=== PATIENT | male | born 1955 | race Caucasian/White ===

== ENCOUNTER 2022-06-12 10:15 | Day surgery (SDC) | payer MEDICARE, SELFPAY ==
[2022-06-12 10:25] VITALS: BP 151/72; PULSE 66; RESP 18; TEMP 36.2; O2SAT 99
[2022-06-12] MEDS: Tropicam./Phenyleph. (1/2.5%) 5 ML BTL OS ×3 (10:56→11:13)
--- NOTE | 2022-06-12 10:58 | W.ANESPRE ---
General Info Date of Service Date Performed: 06/12/22 Height: 5 ft 11 in Weight: 77.111 kg Body Mass Index (BMI): 23.7 Surgical Procedure: Operation Date: 06/12/22 12:10 Proposed Procedure Side Surgeon p Cataract Extraction with IOL Implant Left Joshua Sun MD Meds Allergies and Home Medications Allergies Allergy/AdvReac Type Severity Reaction Status Date / Time No Known Allergies Allergy Unverified 06/12/22 10:48 Home Medication Medication Instructions Recorded amlodipine 10 mg tablet 10 mg PO DAILY 06/09/22 atorvastatin 80 mg tablet 80 mg PO DAILY 06/09/22 clopidogrel 75 mg tablet 75 mg PO DAILY 06/09/22 finasteride 5 mg tablet 5 mg PO DAILY 06/09/22 lisinopril 40 mg tablet 40 mg PO DAILY 06/09/22 metoprolol succinate 25 mg 25 mg PO DAILY 06/09/22 tablet,extended release 24 hr tamsulosin 0.4 mg capsule 0.4 mg PO DAILY 06/09/22 Current Visit Medications: Current Medications Generic Name Dose Route Start Last Admin Trade Name Freq PRN Reason Stop Dose Admin Acetaminophen 1,000 mg 06/12/22 06:00 Acetaminophen 500 Mg Tab PO Q4H PRN PRN Miscellaneous Medication 0 ml 06/12/22 06:00 06/12/22 10:56 Tropicam./Phenyleph. 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 denies HTN (hypertension) Hx of fracture of rib Mixed hyperlipidemia PVD (peripheral vascular disease) Surgical History Surgical History Hx of cqvcj-letxt-neivxqk bypass 04/2021 Hx of cardiac catheterization x2 stents 2018 Hx of colonoscopy Hx of esophagogastroduodenoscopy Tobacco Smoking/Tobacco Use Status: Current every day Tobacco Type: cigarettes Alcohol Alcohol Intake: never Substance Use Substance use: Never Substance use type: does not use Vital Signs and Lab Results Vital Signs Most Recent Vital Signs in EMR: Most Recent Vital Signs Temp Pulse Resp BP Pulse Ox 36.2 C L 66 18 151/72 H 99 06/12/22 10:25 06/12/22 10:25 06/12/22 10:25 06/12/22 10:25 06/12/22 10:25 Lab Results Blood Type / Crossmatch: No Data to Display Complete Blood Count: No Data to Display Complete Metabolic Panel: No Data to Display Liver Function Panel: No Data to Display Coagulation Panel: No Data to Display Cardiac Panel: No Data to Display Arterial Blood Gas: No Data to Display Venous Blood Gas: No Data to Display Pancreas Panel: No Data to Display Thyroid Panel: No Data to Display Infectious Disease: No Data to Display Blood Cultures: No Data to Display Toxicology Panel: No Data to Display Anesthesia Assessment and Plan Anesthesia History Personal History: No History of Anesthesia Complications Family History: No Family History of Anesthesia Complications Exercise Tolerance Exercise Tolerance: Metabolic Equivalents>4 Pertinent Negatives Pertinent Negatives: No Symptoms of GERD and No History of CVA/TIA Cardiac & Pulmonary Exam Cardiac Exam: Normal S1/S2 Heart Sounds Pulmonary Exam: Clear Bilateral Breath Sounds Implantable Cardiac Device Does patient have a Pacemaker or an ICD?: No Airway Exam Known Difficult Airway: No Mallampati Class: 2 Mouth Opening: Normal (> 3cm) Thyromental Distance: Greater than 3 cm Neck Range of Motion: Limited ROM Neck Circumference: Normal Teeth Condition: Normal Dentition ASA Classification ASA Score: ASA 3 Emergency Case?: No NPO Status NPO Status: NPO Clears >2 hours, Solids >8 hours Anesthesia Plan Resuscitation Status: Full Code Anesthesia Technique: MAC Anesthesia Airway Planned: Natural Airway Monitors Used: Standard Monitors Preoperative Comments:: Hx cardiac stent placement at [facility] COPD no inhailer use non oxygen dependent
[2022-06-12 11:08] VITALS: BMI 23.7
[2022-06-12] MEDS: Tetracaine 0.5% 4 ML BTL OS (11:53)
[2022-06-12] MEDS: Lidocaine 2% Jelly 6 ML SYR (11:54)
[2022-06-12] MEDS: Povidone-Iodine Ophth 30 ML BTL (11:56)
[2022-06-12] MEDS: Balanced Salt Soln.-PLUS 500 ML BAG (11:59)
[2022-06-12] MEDS: Duovisc Viscoelastic System EACH 1 EACH (12:00)
[2022-06-12] MEDS: Lidocaine 1% Pres-Free 5 ML VIAL (12:00)
[2022-06-12] MEDS: Phenylephrine/Lidocaine (15/10) MG/ML 1 ML VIAL (12:01)
[2022-06-12 12:23] VITALS: BP 158/83; PULSE 68; RESP 16; TEMP 36.6; O2SAT 99
--- NOTE | 2022-06-12 12:23 | ROE_ITS ---
Date of service: 06/12/22 Time of Service: 12:23 Operative Note Operative Note DATE OF PROCEDURE: 06/12/22 PRE-OP DIAGNOSIS: Nuclear cataract, left eye POST-OP DIAGNOSIS: same PROCEDURE: Cataract extraction using phacoemulsification with intraocular lens implant, left eye SURGEON: Joshua Sun ANESTHESIA TYPE: Local By Surgeon and MAC Refer to Anesthesia Record PATHOLOGY: none sent COMPLICATIONS: None Patient was transported to: same day Patient's condition: stable Implants: Vincent and Vincent Tecnis Eyhance [id number] Indications: Progressive decreased vision due to cataract, left eye Procedure Description: CATARACT SURGERY OPERATIVE REPORT PREOPERATIVE DIAGNOSIS: 1. Nuclear cataract, left eye POSTOPERATIVE DIAGNOSIS: Same OPERATION: 1. Cataract extraction using phacoemulsification with posterior chamber intraocular lens implant, left eye. IOL: IOL [employer]hib[employer] Sales/Model: Vincent & Vincent Tecnis Eyhance DIB00 IOL Power: + 10.0 diopters IOL Serial Number: [id number] Optic Diameter: 6.0 mm Haptic/Overall Diameter: 13.0 mm PHACO INFO: [employer] Vision System with OZil and Active Fluidics Cumulative Dispersed Energy (CDE): 10.13 seconds SURGEON: Joshua Sun MD, JUDY ANESTHESIA: Monitored A [facility] (MAC), with local sub-tenon's anesthetic infiltration COMPLICATIONS: None SPECIMENS: None INDICATIONS FOR PROCEDURE: The patient is a 67-year-old male with history of myopia who has developed a symptomatic nuclear cataract in the left eye. The option of cataract surgery was offered to the patient and he felt he was symptomatic enough that he wished to proceed. PROCEDURE: The correct surgical eye was identified and marked as the left eye and the pupil was dilated in the preoperative area using mydriatics and cycloplegics. The dilated pupil size was 7.0 mm. The patient elected to proceed without oral sedation. The patient was brought to the operating room where cardiopulmonary monitoring was instituted and surgical time-out was performed, confirming the correct operative eye and IOL power. Topical anesthesia was administered and ophthalmic povidone-iodine 5% was instilled into the conjunctival fornices. Lidocaine gel was applied to the cornea and the natacha-ocular area was prepped with Betadine 10% solution and draped in the usual sterile fashion for intraocular surgery, including an aperture drape. A Tegaderm transparent film dressing was cut in half and used to cover the lashes and lid margins. Care was taken to sequester the lashes and lid margins under the Tegaderm dressing. A lid speculum was placed between the lids of the operative eye and the Cruz [employer] operating microscope was maneuvered into position. Evangelista scissors were then used to make a conjunctival buttonhole approximately 6mm posterior to the limbus in the inferonasal quadrant. Blunt dissection was carried out to expose bare sclera, and a blunt-tipped sub-tenon?s anesthesia cannula was introduced and passed posteriorly along the globe where non-pr eserved plain lidocaine was injected into posterior sub-Tenon?s space. A sideport knife was used to make a paracentesis port superiorly/superiortemporally. Intraocular phenylephrine/lidocaine was injected int the anterior chamber.. The anterior chamber was filled with viscoelastic. A keratome knife was used to construct a 2-plane near-clear corneal tunnel extending 2.0mm into clear cornea temporally. A flap was raised on the anterior capsule and capsulorhexis forceps were used to complete a continuous curvilinear capsulorhexis of 5.0 mm. Balanced salt solution was then used to perform cortical cleaving hydrodissection and nuclear hydrodelineation until the lens could be freely rotated within the capsular bag. The lens nucleus was then disassembled and removed within the capsular bag and iris plane using phacoemulsification. Residual cortical material was removed using the 45-degree angled silicone I/A tip with 0.3mm port. The posterior capsule was carefully polished to remove as much residual lens epithelial cells as safely possible. The capsular bag was then inflated and the anterior chamber deepened with viscoelastic. The lens implant described above was inserted into the capsular bag using the Vincent and Vincetn Simplicity pre-loaded injector. . A Kuglen hook was used to dial the IOL into position. Residual viscoelastic was then removed first from posterior to the IOL, then from the anterior chamber using the I/A handpiece. The lens implant was noted to center nicely within the capsular bag. The incisions were stromally hydrated, and the anterior chamber was reformed using BSS. Then 0.5cc of moxifloxacin 1.0mg/ml were injected into the capsular bag and anterior chamber. The incisions were checked with a Weck spear and found to be secure. Several drops of ophthalmic povidone-iodine 5% were then applied to the eye followed by two drops of Imprimis combination prednisolone/moxifloxacin/nepafenac solution. The drapes were removed and a clear plastic protective eye shield was placed over the eye. The patient was then returned to Same Day Surgery in stable condition.
--- NOTE | 2022-06-12 12:23 | W.PM.DSUDISC ---
Date of service: 06/12/22 Time of Service: 12:23 Discharge Plan Disposition Patient Disposition: Home Discharge Details Attending Provider: Joshua Sun Primary Care Provider: Hector Avila Home Meds and New Rx's Prescriptions: No Action atorvastatin 80 mg tablet 80 mg PO DAILY clopidogrel 75 mg tablet 75 mg PO DAILY tamsulosin 0.4 mg capsule 0.4 mg PO DAILY amlodipine 10 mg tablet 10 mg PO DAILY metoprolol succinate 25 mg tablet extended release 24 hr 25 mg PO DAILY lisinopril 40 mg tablet 40 mg PO DAILY finasteride 5 mg tablet 5 mg PO DAILY Discharge Instructions Stand Alone Forms: Post-op Topical Cataract, Khadra Torres (DSU) Discharge Orders Discharge Orders: Discharge Order (Routine); Ordered 06/12/22 Ordered By: Joshua Sun DS: Diagnosis Discharge Diagnosis (1) Nuclear age-related cataract, left eye: Status: Resolved
--- NOTE | 2022-06-12 12:44 | W.ANESPOSTOP ---
Postoperative Evaluation Date, Time and Location Date Performed: 06/12/22 Time Performed: 12:30 Patient Location: Day Surgery Unit Vital Signs Most Recent Imported Vital Signs: Most Recent Vital Signs Temp Pulse Resp BP Pulse Ox 36.6 C 68 16 158/83 H 99 06/12/22 12:23 06/12/22 12:23 06/12/22 12:23 06/12/22 12:23 06/12/22 12:23 Pain Score Most Recent Pain Score: Most Recent Pain Score Pain Level 0 06/12/22 12:23 Assessment Mental Status: Awake (Alert & Oriented to Patient Baseline) Airway and Respiratory Function: Patent airway with normal (patient baseline) respiratory exam Cardiovascular Function: Hemodynamically Stable Hydration Status: Adequately Hydrated Nausea & Vomiting: No Nausea or Vomiting Pain: Pt. Denies Any Pain Peripheral Nerve Block: Patient did not receive a nerve block
== END 2022-06-12 12:47 | disposition home or self-care (01) ==
LOC: SUR 10:16
PROVIDERS: PCP Nurse Practitioner; Visit Provider Ophthalmology
PROC: (CPT 66984; principal; 2022-06-12 12:00)
DX: H25.12 Age-related nuclear cataract, left eye (principal)
CPT/HCPCS: 66984; V2632

== ENCOUNTER 2022-06-26 10:10 | Day surgery (SDC) | payer MEDICARE, SELFPAY ==
[2022-06-26 10:43] VITALS: BP 136/81; PULSE 68; RESP 16; TEMP 36.3; O2SAT 97
[2022-06-26] MEDS: Tropicam./Phenyleph. (1/2.5%) 5 ML BTL OD ×3 (11:05→11:13)
--- NOTE | 2022-06-26 11:32 | W.ANESPRE ---
General Info Date of Service Date Performed: 06/26/22 Height: 5 ft 11 in Weight: 73.3 kg Body Mass Index (BMI): 22.5 Surgical Procedure: Operation Date: 06/26/22 12:10 Proposed Procedure Side Surgeon p Cataract Extraction with IOL Implant Right Joshua Sun MD Meds Allergies and Home Medications Allergies Allergy/AdvReac Type Severity Reaction Status Date / Time No Known Allergies Allergy Unverified 06/26/22 10:56 Home Medication Medication Instructions Recorded amlodipine 10 mg tablet 10 mg PO DAILY 06/09/22 atorvastatin 80 mg tablet 80 mg PO DAILY 06/09/22 clopidogrel 75 mg tablet 75 mg PO DAILY 06/09/22 finasteride 5 mg tablet 5 mg PO DAILY 06/09/22 lisinopril 40 mg tablet 40 mg PO DAILY 06/09/22 metoprolol succinate 25 mg 25 mg PO DAILY 06/09/22 tablet,extended release 24 hr tamsulosin 0.4 mg capsule 0.4 mg PO DAILY 06/09/22 aspirin 81 mg tablet 81 mg PO DAILY 06/26/22 Current Visit Medications: Current Medications Generic Name Dose Route Start Last Admin Trade Name Freq PRN Reason Stop Dose Admin Acetaminophen 1,000 mg 06/26/22 06:00 Acetaminophen 500 Mg Tab PO Q4H PRN PRN Miscellaneous Medication 0 ml 06/26/22 06:00 06/26/22 11:13 Tropicam./Phenyleph. (1/2.5%) 5 Ml Btl OD 1 drp DIRECTED ROD Administration Miscellaneous Medication 0 ml 06/26/22 06:00 Prednisolone 1%, Moxifloxacin 0.5%, Nepafenac 0.1% 5ml Btl OD DIRECTED ROD Tetracaine HCl 0 ml 06/26/22 06:00 Tetracaine 0.5% 4 Ml Btl OD DIRECTED ROD PFSH Active Problems Active Problems: Problem Status Onset Code Nuclear age-related cataract, right eye H25.11 Nuclear age-related cataract, left eye H25.12 Medical History Medical History Acute upper GI bleed ASHD (arteriosclerotic heart disease) Atheroscler of [place] artery of both legs with intermit claudication Atrophy of testis Bilateral carotid artery stenosis BPH loc w/o ur obs/LUTS Diabetes pt. denies HTN (hypertension) Hx of fracture of rib Mixed hyperlipidemia PVD (peripheral vascular disease) Surgical History Surgical History Hx of abulk-wcraj-zalzxmy bypass 04/2021 Hx of cardiac catheterization x2 stents 2018 Hx of colonoscopy Hx of esophagogastroduodenoscopy Tobacco Smoking/Tobacco Use Status: Current every day Tobacco Type: cigarettes Alcohol Alcohol Intake: never Substance Use Substance use: Never Substance use type: does not use Vital Signs and Lab Results Vital Signs Most Recent Vital Signs in EMR: Most Recent Vital Signs Temp Pulse Resp BP Pulse Ox 36.3 C L 68 16 136/81 97 06/26/22 10:43 06/26/22 10:43 06/26/22 10:43 06/26/22 10:43 06/26/22 10:43 Lab Results Blood Type / Crossmatch: No Data to Display Complete Blood Count: No Data to Display Complete Metabolic Panel: No Data to Display Liver Function Panel: No Data to Display Coagulation Panel: No Data to Display Cardiac Panel: No Data to Display Arterial Blood Gas: No Data to Display Venous Blood Gas: No Data to Display Pancreas Panel: No Data to Display Thyroid Panel: No Data to Display Infectious Disease: No Data to Display Blood Cultures: No Data to Display Toxicology Panel: No Data to Display Anesthesia Assessment and Plan Anesthesia History Personal History: No History of Anesthesia Complications Family History: No Family History of Anesthesia Complications Exercise Tolerance Exercise Tolerance: Metabolic Equivalents>4 Cardiac & Pulmonary Exam Cardiac Exam: Normal S1/S2 Heart Sounds Pulmonary Exam: Clear Bilateral Breath Sounds Implantable Cardiac Device Does patient have a Pacemaker or an ICD?: No Airway Exam Known Difficult Airway: No Mallampati Class: 2 Mouth Opening: Normal (> 3cm) Thyromental Distance: Greater than 3 cm Neck Range of Motion: Limited ROM Neck Circumference: Normal Teeth Condition: Normal Dentition ASA Classification ASA Score: ASA 2 Emergency Case?: No NPO Status NPO Status: NPO Clears >2 hours, Solids >8 hours Anesthesia Plan Resuscitation Status: Full Code Anesthesia Technique: MAC Anesthesia Airway Planned: Natural Airway Monitors Used: Standard Monitors Preoperative Comments:: No health changes since previous cataract surgery, wishes to proceed with no sedation as before.
[2022-06-26 11:39] VITALS: BMI 22.5
[2022-06-26] MEDS: Tetracaine 0.5% 4 ML BTL OD (12:35)
[2022-06-26] MEDS: Lidocaine 1% Pres-Free 5 ML VIAL (12:45)
[2022-06-26] MEDS: Phenylephrine/Lidocaine (15/10) MG/ML 1 ML VIAL (12:46)
[2022-06-26] MEDS: Balanced Salt Soln.-PLUS 500 ML BAG (12:47)
[2022-06-26] MEDS: Duovisc Viscoelastic System EACH 1 EACH (12:47)
[2022-06-26] MEDS: Povidone-Iodine Ophth 30 ML BTL (12:48)
--- NOTE | 2022-06-26 13:01 | W.PM.DSUDISC ---
Date of service: 06/26/22 Time of Service: 13:01 Discharge Plan Disposition Patient Disposition: Home Discharge Details Attending Provider: Joshua Sun Primary Care Provider: Hector Avila Home Meds and New Rx's Prescriptions: No Action atorvastatin 80 mg tablet 80 mg PO DAILY clopidogrel 75 mg tablet 75 mg PO DAILY tamsulosin 0.4 mg capsule 0.4 mg PO DAILY amlodipine 10 mg tablet 10 mg PO DAILY metoprolol succinate 25 mg tablet extended release 24 hr 25 mg PO DAILY lisinopril 40 mg tablet 40 mg PO DAILY finasteride 5 mg tablet 5 mg PO DAILY aspirin 81 mg Tablet 81 mg PO DAILY Discharge Instructions Stand Alone Forms: Post-op Topical Cataract, Khadra Torres (DSU) Discharge Orders Discharge Orders: Discharge Order (Routine); Ordered 06/26/22 Ordered By: Joshua Sun DS: Diagnosis Discharge Diagnosis (1) Nuclear age-related cataract, right eye: Status: Resolved
[2022-06-26 13:02] VITALS: BP 143/77; PULSE 69; RESP 16; TEMP 36.3; O2SAT 97
--- NOTE | 2022-06-26 13:02 | ROE_ITS ---
Date of service: 06/26/22 Time of Service: 13:02 Operative Note Operative Note DATE OF PROCEDURE: 06/26/22 PRE-OP DIAGNOSIS: Nuclear cataract, right eye POST-OP DIAGNOSIS: same PROCEDURE: Cataract extraction using phacoemulsification with intraocular lens implant, right eye SURGEON: Joshua Sun ANESTHESIA TYPE: Local By Surgeon and MAC Refer to Anesthesia Record ESTIMATED BLOOD LOSS: 0 PATHOLOGY: none sent COMPLICATIONS: None Patient was transported to: same day Patient's condition: stable Implants: Vincent & Vincent Tecnis Eyhance DIB00 Indications: Progressive visual loss due to cataract, right eye Procedure Description: CATARACT SURGERY OPERATIVE REPORT PREOPERATIVE DIAGNOSIS: 1. Nuclear cataract, right eye POSTOPERATIVE DIAGNOSIS: Same OPERATION: 1. Cataract extraction using phacoemulsification with posterior chamber intraocular lens implant, right eye. IOL: IOL [employer]/Model: Vincent & Vincent Tecnis Eyhance DIB00 IOL Power: + 10.5 diopters IOL Serial Number: [id number] Optic Diameter: 6.0mm Haptic/Overall Diameter: 13.0mm PHACO INFO: [email or web address] Vision System with OZil and Active Fluidics Cumulative Dispersed Energy (CDE): 8.09 seconds SURGEON: Joshua Sun MD, JUDY ANESTHESIA: Monitored Anesthesia Care (MAC), with local sub-tenon's anesthetic infiltration COMPLICATIONS: None SPECIMENS: None INDICATIONS FOR PROCEDURE: The patient is a 67-year-old gentleman with history of myopia who has developed a symptomatic bilateral nuclear cataract. He has already undergone cataract surgery in the left eye and is doing well postoperatively. He now presents for cataract surgery in the right eye. PROCEDURE: The correct surgical eye was identified and marked as the right eye and the pupil was dilated in the preoperative area using mydriatics and cycloplegics. The dilated pupil size was 7.0 mm. The patient elected to proceed without oral sedation. The patient was brought to the operating room where cardiopulmonary monitoring was instituted and surgical time-out was performed, confirming the correct operative eye and IOL power. Topical anesthesia was administered and ophthalmic povidone-iodine 5% was instilled into the conjunctival fornices. Lidocaine gel was applied to the cornea and the natacha-ocular area was prepped with Betadine 10% solution and draped in the usual sterile fashion for intraocular surgery, including an aperture drape. A Tegaderm transparent film dressing was cut in half and used to cover the lashes and lid margins. Care was taken to sequester the lashes and lid margins under the Tegaderm dressing. A lid speculum was placed between the lids of the operative eye and the [email or web address] operating microscope was maneuvered into position. Evangelista scissors were then used to make a conjunctival buttonhole approximately 6mm posterior to the limbus in the inferonasal quadrant. Blunt dissection was carried out to expose bare sclera, and a blunt-tipped sub-tenon?s anesthesia cannula was introduced and passed posteriorly along the globe where non- preserved plain lidocaine was injected into posterior sub-Tenon?s space. A sideport knife was used to make a paracentesis port inferotemporally. Intraocular phenylephrine/lidocaine was injected into the anterior chamber. The anterior chamber was filled with viscoelastic. A keratome knife was used to construct a 2-plane near-clear corneal tunnel extending 2.0mm into clear cornea superiortemporally. A flap was raised on the anterior capsule and capsulorhexis forceps were used to complete a continuous curvilinear capsulorhexis of 5.5 mm. Balanced salt solution was then used to perform cortical cleaving hydrodissection and nuclear hydrodelineation until the lens could be freely rotated within the capsular bag. The lens nucleus was then disassembled and removed within the capsular bag and iris plane using phacoemulsification. Residual cortical material was removed using the I/A handpiece. The posterior capsule was carefully polished to remove as much residual lens epithelial cells as safely possible. The capsular bag was then inflated and the anterior chamber deepened with viscoelastic. The lens implant described above was inserted into the capsular bag using the Vincent and Janie Simplicity pre-loaded injector. A Kuglen hook was used to dial the IOL into position. Residual viscoelastic was then removed first from posterior to the IOL, then from the anterior chamber using the I/A handpiece. The lens implant was noted to center nicely within the capsular bag. The incisions were stromally hydrated, and the anterior chamber was reformed using BSS. Then 0.5cc of moxifloxacin 1.0mg/ml were injected into the capsular bag and anterior chamber. The incisions were checked with a Weck spear and found to be secure. Several drops of ophthalmic povidone-iodine 5% were then applied to the eye followed by two drops of Imprimis combination prednisolone/moxifloxacin/nepafenac solution. The drapes were removed and a clear plastic protective eye shield was placed over the eye. The patient was then returned to Same Day Surgery in stable condition.
--- NOTE | 2022-06-26 13:18 | W.ANESPOSTOP ---
Postoperative Evaluation Date, Time and Location Date Performed: 06/26/22 Time Performed: 13:10 Patient Location: Day Surgery Unit Vital Signs Most Recent Imported Vital Signs: Most Recent Vital Signs Temp Pulse Resp BP Pulse Ox 36.3 C L 69 16 143/77 H 97 06/26/22 13:02 06/26/22 13:02 06/26/22 13:02 06/26/22 13:02 06/26/22 13:02 Pain Score Most Recent Pain Score: Most Recent Pain Score Pain Level 0 06/26/22 13:02 Assessment Mental Status: Awake (Alert & Oriented to Patient Baseline) Airway and Respiratory Function: Patent airway with normal (patient baseline) respiratory exam Cardiovascular Function: Hemodynamically Stable Hydration Status: Adequately Hydrated Nausea & Vomiting: No Nausea or Vomiting Pain: Pt. Denies Any Pain Peripheral Nerve Block: Patient did not receive a nerve block
== END 2022-06-26 13:37 | disposition home or self-care (01) ==
LOC: SUR 10:10
PROVIDERS: PCP Nurse Practitioner; Visit Provider Ophthalmology
PROC: (CPT 66984; principal; 2022-06-26 12:00)
DX: H25.11 Age-related nuclear cataract, right eye (principal)
CPT/HCPCS: 66984; V2632